=== PATIENT | male | born 2005 | race African-American/Black ===

== ENCOUNTER 2025-02-04 18:31 | Emergency (ER) | payer OTHER ==
[~2025-02-04] VITALS: Ht 167.6 cm; Wt 49.6 kg
[2025-02-04] MEDS ORDERED: EMTR1TAB16 PO (18:47)
[2025-02-04] MEDS: NS (Normal Saline) 0.9% 1,000 ML IV SCH (20:09)
[2025-02-04] MEDS ORDERED: ISOVUE-370 76% 100 ML VIAL As Ordered ONE (20:11)
[2025-02-04] MEDS: ACETAMINOPHEN *IV* 500 MG in IV 1 EA IV ONE (20:18)
[2025-02-04 20:25] LABS: PLATELET COUNT, AUTOMATED 243 10^3/uL (150-450)
[2025-02-04 20:40] LABS: CALCIUM LEVEL 9.5 MG/DL (8.5-10.1); CARBON DIOXIDE LEVEL 28.0 MMOL/L (20-31); CHLORIDE LEVEL 98.0 MMOL/L (98-107); CREATININE FOR GFR 1.38 MG/DL (0.70-1.30); GLOMERULAR FILTRATION RATE 75.1 (>60); POTASSIUM SERUM 4.8 MMOL/L (3.5-5.1); SODIUM LEVEL 140.0 MMOL/L (136-145)
[2025-02-04 21:07] LABS: ATYPICAL LYMPH 6 % (0-5); LYMPHOCYTES 35 % (16-44); MONOCYTES 8 % (0-5); NEUTROPHILS 51 % (28-66); PLATELET ESTIMATE NORMAL (NORMAL)
[2025-02-04 21:08] LABS: PLATELET CLUMPS SMALL AMT
[2025-02-04 22:10] LABS: MONO SCRN POSITIVE (NEGATIVE)
[2025-02-04] MEDS: IBUPROFEN 600 MG TAB PO ONE (22:13)
[2025-02-04] MEDS: AMPICILLIN SOD/SULBACTAM SOD 3 GM in DEXTROSE 5% (D5W) MINI-BAG PLU 100 ML IV ONE (22:15)
[2025-02-04] MEDS ORDERED: AMOX500C PO (23:02)
[2025-02-04] MEDS ORDERED: DEXA4TA PO (23:06)
[2025-02-04 23:33] VITALS: BP 119/70; TEMP 99; O2SAT 98
== END 2025-02-04 23:36 | disposition home or self-care (01) ==
LOC: M ED 18:31
DX: B27.99 Infectious mononucleosis, unspecified with other complication (principal); J03.00 Acute streptococcal tonsillitis, unspecified; Z79.2 Long term (current) use of antibiotics; Z79.899 Other long term (current) drug therapy
CPT/HCPCS: 70491; 80047; 80048; 83605; 85025; 86308; 87040; 87880; 93041; 96365; 96366; 99285; J0136; J0295; J1100; Q9967

== ENCOUNTER 2025-04-30 14:40 | Emergency (ER) | payer OTHER ==
[~2025-04-30] VITALS: Ht 167.6 cm; Wt 57.8 kg
[~2025-04-30 14:40] MED LIST: AMOX500C PO; DEXA4TA PO; EMTR1TAB16 PO
[2025-04-30 16:34] VITALS: TEMP 97.4
[2025-04-30 20:14] VITALS: BP 112/65; O2SAT 100
== END 2025-04-30 20:15 | disposition home or self-care (01) ==
LOC: M ED 14:40
DX: N50.3 Cyst of epididymis (principal); Z79.2 Long term (current) use of antibiotics; Z79.899 Other long term (current) drug therapy